=== PATIENT | female | born 1990 | race American Indian/Alaskan Native ===

== ENCOUNTER 2016-03-02 14:19 | Emergency (ER) | payer MEDICAID ==
[2016-03-02 14:59] VITALS: BP 110/62
[2016-03-02] MEDS ORDERED: MOTRIN PO ONE (18:27)
--- NOTE | 2016-03-02 18:32 | Emergency Department Report ---
ED General Adult HPI - General Chief complaint: Dental/Oral Stated complaint: TOOTHACHE/DISCHARGE Time Seen by Provider: 03/02/16 18:24 Source: patient Mode of arrival: Ambulatory Limitations: No Limitations - History of Present Illness Initial comments: 25-year-old female comes in for complaint of cavities and tooth ache. She has not taking any medications for pain. She also complains of vaginal discharge that has a foul smell 2 weeks. She denies abdominal pain no dysuria no fever no chills. LMP 02/28/2016 - Related Data Previous Rx's Medication Instructions Recorded Last Taken Type HYDROcodone/APAP 5-325 [[place] 1 each PO Q6HR PRN #20 tablet 04/25/13 Unknown Rx 5/325 mg] Naproxen [Naprosyn] 500 mg PO BID #30 tablet 04/25/13 Unknown Rx Acetaminophen/Codeine [Tylenol #3] 1 tab PO Q6H PRN #14 tab 08/13/14 Unknown Rx Ibuprofen [Motrin 600 MG tab] 600 mg PO Q8H PRN #30 tablet 03/02/16 Unknown Rx Allergies Allergy/AdvReac Type Severity Reaction Status Date / Time No Known Allergies Allergy Verified 05/15/15 07:55 ED Review of Systems ROS: Stated complaint: TOOTHACHE/DISCHARGE Other details as noted in HPI Constitutional: no symptoms reported ENT: dental pain. denies: ear pain, throat pain Genitourinary: discharge ED Past Medical Hx - Past Medical History Previous Medical History?: No - Surgical History Past Surgical History?: No Additional Surgical History: x2 - Social History Smoking Status: Never Smoker Substance Use Type: None - Medications Home Medications: Home Medications Medication Instructions Recorded Confirmed Last Taken Type HYDROcodone/APAP 5-325 [[place] 1 each PO Q6HR PRN #20 tablet 04/25/13 Unknown Rx 5/325 mg] Naproxen [Naprosyn] 500 mg PO BID #30 tablet 04/25/13 Unknown Rx Acetaminophen/Codeine [Tylenol #3] 1 tab PO Q6H PRN #14 tab 08/13/14 Unknown Rx Ibuprofen [Motrin 600 MG tab] 600 mg PO Q8H PRN #30 tablet 03/02/16 Unknown Rx ED Physical Exam - General Limitations: No Limitations General appearance: alert, in no apparent distress - ENT ENT exam: Present: mucous membranes moist - Expanded ENT Exam Expanded Teeth exam: Present: dental caries (multiple). Absent: fractured tooth #, dental tenderness #, gingival enlargement - Neck Neck exam: Present: full ROM. Absent: tenderness, lymphadenopathy, thyromegaly - External exam: Present: normal external exam Speculum exam: Present: vaginal discharge, cervical discharge. Absent: vaginal bleeding Bi-manual exam: Present: normal bi-manual exam. Absent: cervical motion tendernes, adnexal tenderness, adnexal mass ED Course Vital Signs 03/02/16 14:55 Temperature 98.2 F Pulse Rate 96 H Respiratory 18 Rate Blood Pressure 110/62 O2 Sat by Pulse 100 Oximetry ED Medical Decision Making - Medical Decision Making Patient and evaluated by this provider. Ordered a chlamydia and gonorrhea as well as a wet prep. We order ibuprofen for patient's pain of her mouth. We will treat her for gonorrhea and chlamydia and await the wet prep. Will refer patient to a dentist I do not see any abscesses just multiple caries. Critical care attestation.: If time is entered above; I have spent that time in minutes in the direct care of this critically ill patient, excluding procedure time. ED Disposition Clinical Impression: Tooth caries Disposition: DISCHARGED TO HOME OR SELFCARE Is pt being admited?: No Does the pt Need Aspirin: No Condition: Stable Prescriptions: Ibuprofen [Motrin 600 MG tab] 600 mg PO Q8H PRN #30 tablet PRN Reason: Pain Referrals: PRIMARY CARE, [Primary Care Provider] - 3-5 Days [facility] [Outside] - 3-5 Days [facility] [Outside] - 3-5 Days
[2016-03-02] MEDS ORDERED: XYLOCAINE 1% MPF 5 mL INFILTRATI ONE (19:00)
[2016-03-02] MEDS ORDERED: ROCEPHIN IM ONE (19:00)
[2016-03-02] MEDS ORDERED: ZITHROMAX PO ONE (19:01)
[2016-03-02 19:20] LABS: Bilirubin,Urine NEG (Negative); Blood,Urine NEG (Negative); Ketones,Urine NEG (Negative); Leukocyte Esterase,Urine MOD (Negative); Mucus,Urine 1+ /HPF; Nitrite,Urine NEG (Negative); Protein,Urine <15 mg/dL mg/dL (Negative); Urobilinogen,Urine < 2.0 mg/dL (<2.0)
== END 2016-03-02 19:59 | disposition home or self-care (01) ==
LOC: ED 14:19
DX: K02.9 Dental caries, unspecified (principal); N89.8 Other specified noninflammatory disorders of vagina
CPT/HCPCS: 81001; 81025; 87210; 87591; 96372; 99284; J0696

== ENCOUNTER 2016-06-27 19:03 | Emergency (ER) | payer MEDICAID ==
[2016-06-27 19:41] VITALS: BP 106/64
== END 2016-06-27 21:15 | disposition left against medical advice (07) ==
LOC: ED 19:03
DX: N89.8 Other specified noninflammatory disorders of vagina (principal); Z53.21 Procedure and treatment not carried out due to patient leaving prior to being seen by health care provider

== ENCOUNTER 2016-11-29 09:32 | Emergency (ER) | payer MEDICAID ==
[2016-11-29 10:18] VITALS: BP 115/68
[2016-11-29 10:51] LABS: Bacteria,Urine 4+ /HPF (Negative); Bilirubin,Urine NEG (Negative); Blood,Urine MOD (Negative); Ketones,Urine NEG (Negative); Leukocyte Esterase,Urine LG (Negative); Nitrite,Urine NEG (Negative); Urobilinogen,Urine < 2.0 mg/dL (<2.0)
[2016-11-29 10:52] LABS: WBC,Urine > 182.0 /HPF (0.0-6.0)
[2016-11-29 10:59] LABS: Basophils % (Auto) 0.4 % (0.0-1.8); Eosinophils % (Auto) 1.2 % (0.0-4.3); Hemoglobin 13.6 gm/dl (10.1-14.3); Mean Corpuscular HGB Conc 33 % (30-34); Mean Corpuscular Volume 79 fl (79-97); Platelet Count 223 K/mm3 (140-440); Red Blood Count 5.35 M/mm3 (3.65-5.03); Red Cell Distribution Width 16.8 % (13.2-15.2); White Blood Count 13.7 K/mm3 (4.5-11.0)
[2016-11-29 11:14] LABS: Mean Corpuscular Hemoglobin 26 pg (28-32)
[2016-11-29 11:20] LABS: Anion Gap 15 mmol/L; BUN/Creatinine Ratio 13; Blood Urea Nitrogen 9 mg/dL (7-17); Calcium 9.4 mg/dL (8.4-10.2); Carbon Dioxide 27 mmol/L (22-30); Chloride 102.4 mmol/L (98-107); Glucose 96 mg/dL (65-100); Potassium 3.9 mmol/L (3.6-5.0); Sodium 140 mmol/L (137-145)
--- NOTE | 2016-11-29 11:36 | Emergency Department Report ---
ED Female HPI - General Chief complaint: Urogenital-Female Stated complaint: SPOTTING Time Seen by Provider: 11/29/16 10:56 Source: patient Mode of arrival: Ambulatory Limitations: No Limitations - History of Present Illness MD Complaint: vaginal discharge, dysuria, pelvic pain, possible STD -: Gradual Quality: cramping Consistency: intermittent Worsens with: none Are you Now?: No Associated Symptoms: vaginal discharge, abdominal pain, dysuria. denies: vaginal bleeding, nausea/vomiting, fever/chills, headaches, loss of appetite, hematuria, rash, seizure, shortness of breath, syncope, weakness - Related Data Sexually active: Yes Previous Rx's Medication Instructions Recorded Last Taken Type Doxycycline [Vibramycin CAP] 100 mg PO Q12HR #28 capsule 11/29/16 Unknown Rx Fluconazole [Diflucan TAB] 100 mg PO QDAY #2 tablet 11/29/16 Unknown Rx metroNIDAZOLE [Flagyl] 500 mg PO Q12HR #28 tab 11/29/16 Unknown Rx Allergies Allergy/AdvReac Type Severity Reaction Status Date / Time No Known Allergies Allergy Verified 05/15/15 07:55 ED Review of Systems ROS: Stated complaint: SPOTTING Other details as noted in HPI Comment: Unobtainable due to pts medical conditions Constitutional: no symptoms reported, see HPI. denies: chills, fever Eyes: as per HPI. denies: eye pain ENT: as per HPI. denies: ear pain, throat pain Respiratory: no symptoms reported, see HPI. denies: cough, orthopnea Cardiovascular: as per HPI. denies: chest pain, palpitations, dyspnea on exertion, orthopnea Endocrine: no symptoms reported, see HPI. denies: excessive sweating, flushing , intolerance to cold, intolerance to heat Gastrointestinal: as per HPI. denies: abdominal pain, nausea, vomiting, diarrhea, constipation, hematemesis, melena, hematochezia Genitourinary: as per HPI, urgency, dysuria, frequency, discharge, abnormal menses. denies: hematuria, dyspareunia Musculoskeletal: as per HPI. denies: back pain Skin: as per HPI. denies: rash, lesions Neurological: as per HPI. denies: headache, weakness Psychiatric: as per HPI. denies: anxiety, depression Hematological/Lymphatic: as per HPI. denies: easy bleeding ED Past Medical Hx - Past Medical History Previous Medical History?: Yes Additional medical history: vaginal delivery x 2; std - Surgical History Past Surgical History?: Yes Additional Surgical History: x2 - Social History Smoking Status: Never Smoker Substance Use Type: None - Medications Home Medications: Home Medications Medication Instructions Recorded Confirmed Last Taken Type Doxycycline [Vibramycin CAP] 100 mg PO Q12HR #28 capsule 11/29/16 Unknown Rx Fluconazole [Diflucan TAB] 100 mg PO QDAY #2 tablet 11/29/16 Unknown Rx metroNIDAZOLE [Flagyl] 500 mg PO Q12HR #28 tab 11/29/16 Unknown Rx ED Physical Exam - General Limitations: No Limitations General appearance: alert - Head Head exam: Present: normocephalic - Eye Eye exam: Present: PERRL - ENT ENT exam: Present: mucous membranes moist - Neck Neck exam: Present: normal inspection - Respiratory Respiratory exam: Present: normal lung sounds bilaterally - Cardiovascular Cardiovascular Exam: Present: regular rate - GI/Abdominal GI/Abdominal exam: Present: soft, normal bowel sounds. Absent: distended, tenderness, guarding, rebound, rigid, diminished bowel sounds - Rectal Rectal exam: Present: deferred - External exam: Present: normal external exam Speculum exam: Present: normal speculum exam, erythema, vaginal discharge, cervical discharge. Absent: vaginal bleeding, foreign body, tissue Bi-manual exam: Present: cervical motion tendernes. Absent: normal bi-manual exam, adnexal tenderness, adnexal mass, uterine enlargement, uterine tenderness - Extremities Exam Extremities exam: Present: normal inspection - Back Exam Back exam: Present: normal inspection, full ROM. Absent: tenderness, CVA tenderness (R), CVA tenderness (L), muscle spasm, paraspinal tenderness, vertebral tenderness - Neurological Exam Neurological exam: Present: alert, oriented X3, CN II-XII intact, normal gait, reflexes normal - Psychiatric Psychiatric exam: Present: normal affect, normal mood - Skin Skin exam: Present: warm, dry, intact ED Course Vital Signs 11/29/16 10:13 Temperature 99.4 F Pulse Rate 98 H Respiratory 16 Rate Blood Pressure 115/68 O2 Sat by Pulse 98 Oximetry - Reevaluation(s) Reevaluation #1: 11/29/16 13:09 to er w co vag dc and frequency she has not had sex for a while bc of previous std had sex 2 w ago and now s/s mild fever non toxic appearing walking wo diff no pain w palp of abd no n/v/d see exam ua noted wet prep noted labs noted preg neg given hx and labs will tx empirac. vss on dc pt educated on safe sex ED Medical Decision Making - Lab Data Result diagrams: 11/29/16 10:43 11/29/16 10:43 - Medical Decision Making see notes Critical care attestation.: If time is entered above; I have spent that time in minutes in the direct care of this critically ill patient, excluding procedure time. ED Disposition Clinical Impression: UTI (urinary tract infection), PID (pelvic inflammatory disease), Bacterial vaginosis Disposition: DC- TO HOME OR SELFCARE Is pt being admited?: No Does the pt Need Aspirin: No Condition: Stable Instructions: Bacterial Vaginosis (ED), Sexually Transmitted Diseases (ED), Urinary Tract Infection in Women (ED) Additional Instructions: safe sex meds as ordered follow up ob at completion of this treatment to be sure this has gone away motrin or tylenol for pain your test was negative today partners should be tested Prescriptions: Doxycycline [Vibramycin CAP] 100 mg PO Q12HR #28 capsule Fluconazole [Diflucan TAB] 100 mg PO QDAY #2 tablet metroNIDAZOLE [Flagyl] 500 mg PO Q12HR #28 tab Referrals: PRIMARY CARE, [Primary Care Provider] - 3-5 Days Forms: STI Treatment and Prevention Time of Disposition: 12:46
[2016-11-29] MEDS ORDERED: XYLOCAINE 1% MPF 5 mL INFILTRATI ONE (12:42)
[2016-11-29] MEDS ORDERED: ROCEPHIN IM ONE (12:42)
== END 2016-11-29 13:05 | disposition home or self-care (01) ==
LOC: ED 09:32
DX: N39.0 Urinary tract infection, site not specified (principal); N73.9 Female pelvic inflammatory disease, unspecified; N76.0 Acute vaginitis
CPT/HCPCS: 36415; 80048; 81001; 81025; 85025; 87076; 87086; 87210; 87591; 96372; 99284; J0696

== ENCOUNTER 2017-11-18 11:08 | Emergency (ER) | payer MEDICAID ==
[2017-11-18 11:26] VITALS: BP 121/71
[2017-11-18 12:05] LABS: Bilirubin,Urine NEG (Negative); Blood,Urine NEG (Negative); Color,Urine Yellow (Yellow); Mucus,Urine FEW /HPF; Protein,Urine <15 mg/dL mg/dL (Negative)
[2017-11-18 12:08] LABS: HCG Qualitative,Urine Negative (Negative)
[2017-11-18] MEDS ORDERED: XYLOCAINE 1% MPF 5 mL INFILTRATI ONE (12:17)
[2017-11-18] MEDS ORDERED: ZITHROMAX PO ONE (12:17)
[2017-11-18] MEDS ORDERED: ROCEPHIN IM ONE (12:17)
--- NOTE | 2017-11-18 12:22 | Emergency Department Report ---
ED Female HPI - General Chief complaint: Urogenital-Female Stated complaint: DISCHARGE Time Seen by Provider: 11/18/17 11:39 Source: patient Mode of arrival: Ambulatory Limitations: No Limitations - History of Present Illness Initial comments: This is a 27-year-old female nontoxic, well nourished in appearance, no acute signs of distress presents to the ED with c/o of vaginal discharge. Patient denies any vaginal pain or swelling. Patient denies any vaginal ulcers or lesions. Patient denies any nausea, vomiting, chest pain, shortness of breathe , fever, chills, headache, back pain, numbness, tingling, stiff neck. Patient denies any urinary symptoms. Patient denies any allergies or PMH. MD Complaint: vaginal discharge, possible STD -: week(s) (1) Radiation: non-radiating Severity scale (0 -10): 0 Consistency: constant Improves with: none Worsens with: none Are you Now?: No Associated Symptoms: vaginal discharge. denies: vaginal bleeding, abdominal pain, nausea/vomiting, fever/chills, headaches, loss of appetite, dysuria, hematuria, rash, seizure, shortness of breath, syncope, weakness - Related Data Sexually active: Yes Previous Rx's Medication Instructions Recorded Last Taken Type Doxycycline [Vibramycin CAP] 100 mg PO Q12HR #28 capsule 11/29/16 Unknown Rx Fluconazole [Diflucan TAB] 100 mg PO QDAY #2 tablet 11/29/16 Unknown Rx metroNIDAZOLE [Flagyl] 500 mg PO Q12HR #28 tab 11/29/16 Unknown Rx metroNIDAZOLE [Flagyl] 500 mg PO Q12HR #14 tab 11/18/17 Unknown Rx Allergies Allergy/AdvReac Type Severity Reaction Status Date / Time No Known Allergies Allergy Verified 05/15/15 07:55 ED Review of Systems ROS: Stated complaint: DISCHARGE Other details as noted in HPI Constitutional: denies: chills, fever Eyes: denies: eye pain, eye discharge, vision change ENT: denies: ear pain, throat pain Respiratory: denies: cough, shortness of breath, wheezing Cardiovascular: denies: chest pain, palpitations Endocrine: no symptoms reported Gastrointestinal: denies: abdominal pain, nausea, diarrhea Genitourinary: discharge. denies: urgency, dysuria Musculoskeletal: denies: back pain, joint swelling, arthralgia Skin: denies: rash, lesions Neurological: denies: headache, weakness, paresthesias Psychiatric: denies: anxiety, depression Hematological/Lymphatic: denies: easy bleeding, easy bruising ED Past Medical Hx - Past Medical History Previous Medical History?: Yes Hx Hypertension: Yes (PIH) Additional medical history: vaginal delivery x 2; std - Surgical History Past Surgical History?: Yes Additional Surgical History: x2 - Social History Smoking Status: Never Smoker Substance Use Type: None - Medications Home Medications: Home Medications Medication Instructions Recorded Confirmed Last Taken Type Doxycycline [Vibramycin CAP] 100 mg PO Q12HR #28 capsule 11/29/16 Unknown Rx Fluconazole [Diflucan TAB] 100 mg PO QDAY #2 tablet 11/29/16 Unknown Rx metroNIDAZOLE [Flagyl] 500 mg PO Q12HR #28 tab 11/29/16 Unknown Rx metroNIDAZOLE [Flagyl] 500 mg PO Q12HR #14 tab 11/18/17 Unknown Rx ED Physical Exam - General Limitations: No Limitations General appearance: alert, in no apparent distress - Head Head exam: Present: atraumatic, normocephalic - Eye Eye exam: Present: normal appearance - ENT ENT exam: Present: mucous membranes moist - Neck Neck exam: Present: normal inspection - Respiratory Respiratory exam: Present: normal lung sounds bilaterally. Absent: respiratory distress, wheezes, rales, rhonchi, stridor - Cardiovascular Cardiovascular Exam: Present: regular rate, normal rhythm, normal heart sounds. Absent: bradycardia, tachycardia, irregular rhythm, systolic murmur, diastolic murmur, rubs, gallop - GI/Abdominal GI/Abdominal exam: Present: soft, normal bowel sounds. Absent: distended, tenderness - Extremities Exam Extremities exam: Present: normal inspection, full ROM, normal capillary refill - Back Exam Back exam: Present: normal inspection - Neurological Exam Neurological exam: Present: alert, oriented X3 - Psychiatric Psychiatric exam: Present: normal affect, normal mood - Skin Skin exam: Present: warm, dry, intact, normal color. Absent: rash ED Course Vital Signs 11/18/17 11:23 Temperature 99.5 F Pulse Rate 86 Respiratory 18 Rate Blood Pressure 121/71 O2 Sat by Pulse 97 Oximetry - Reevaluation(s) Reevaluation #1: 11/18/17 12:20 Patient is speaking in full sentences with no signs of distress noted. ED Medical Decision Making - Medical Decision Making This is a 27-year-old female that presents with possible STD and BV. Patient is stable was examined by me. Patient swabbed self as she stated to rather swab herself then getting a pelvic exam. There is no abdominal tenderness. No pelvic pain. UA obtained. Wet prep obtained. Gonorrhea chlamydia swab pending. Patient was instructed to return in 2 days for GC results. Patient wanted empirical treatment so patient received 250 mg Rocephin and 1 g of azithromycin by mouth. Patient was instructed to Follow-up with a primary care doctor in 3-5 days or if symptoms worsen and continue return to emergency room as soon as possible. At time of discharge, the patient does not seem toxic or ill in appearance. No acute signs of distress noted. Patient agrees to discharge treatment plan of care. No further questions noted by the patient. Critical care attestation.: If time is entered above; I have spent that time in minutes in the direct care of this critically ill patient, excluding procedure time. ED Disposition Clinical Impression: Possible exposure to STD, BV (bacterial vaginosis) Disposition: DC-01 TO HOME OR SELFCARE Is pt being admited?: No Does the pt Need Aspirin: No Condition: Stable Instructions: Safe Sex (ED), Bacterial Vaginosis (ED), Metronidazole (By mouth) Additional Instructions: Follow-up with a primary care doctor in 3-5 days or if symptoms worsen and continue return to emergency room as soon as possible. Return in 2-3 days for gonorrhea and chlamydia results. Prescriptions: metroNIDAZOLE [Flagyl] 500 mg PO Q12HR #14 tab Referrals: LEOPOLDO NAJERA MD [Primary Care Provider] - 3-5 Days JUAN CARLOS GAONA MD [Staff Physician] - 3-5 Days [facility] [Outside] - 3-5 Days [facility] [Outside] - 3-5 Days Forms: Work/School Release Form(ED)
[2017-11-18] MEDS ORDERED: NACL BACTERIOSTATIC INFILTRATI ONE (12:37)
== END 2017-11-18 12:59 | disposition home or self-care (01) ==
LOC: ED 11:08
DX: N76.0 Acute vaginitis (principal); I10 Essential (primary) hypertension
CPT/HCPCS: 81001; 81025; 87210; 87591; 96372; 99283; J0696

== ENCOUNTER 2019-01-26 09:22 | Emergency (ER) | payer MEDICAID, OTHER ==
[2019-01-26 09:32] VITALS: BP 106/63
--- NOTE | 2019-01-26 11:42 | Emergency Department Report ---
Chief Complaint: Dental/Oral Stated Complaint: POSS UTI/TOOTHACHE Time Seen by Provider: 01/26/19 10:41 - HPI History of Present Illness: This is a 28-year-old female who presents to ED complaining of toothache for the past 2 weeks. Patient stated that extensive pain is causing discomfort with eating. Patient stated she started noticing some swelling to the right lower 2. Patient is also is stating that she wants to be tested for as well as malodorous urine patient denies fevers/chills/nausea vomiting/abdominal pain since vaginal discharge or any other symptoms. - ROS Review of Systems: Studies in HPI - Exam Vital Signs: Vital Signs 01/26/19 09:31 Temperature 98.7 F Pulse Rate 74 Respiratory 18 Rate Blood Pressure 106/63 O2 Sat by Pulse 100 Oximetry Physical Exam: GENERAL: Alert and oriented x3, no apparent distress, Normal Gait, atraumatic. HEAD: Head is normocephalic and a-traumatic. MOUTH:Mouth is well hydrated and without lesions. Tonsils nonerythematous or swollen, Uvula midline, Tongue not elevated. Mucous membranes are moist. Posterior pharynx clear, no exudate or lesions. Patent airways. SKIN: Warm and dry, No lesions, No ulceration or induration present. MSE screening note: Focused history and physical exam performed. Due to findings the following was ordered: ED Medical Decision Making - Medical Decision Making 38-year-old female who presented with dental pain. Discussed with patient needs to follow-up with [facility] for test 2 and referrals given for dental referral as well. Vital signs are normal ED Disposition for MSE Clinical Impression: Pain due to dental caries Disposition: DC-01 TO HOME OR SELFCARE Is pt being admited?: No Does the pt Need Aspirin: No Condition: Stable Instructions: Dental Caries (ED), Toothache (ED) Additional Instructions: Make sure to follow up with the primary care physician as discussed. Take all your medications as you've been prescribed. If you have any worsening symptoms or develop new symptoms please return to ED immediately. Prescriptions: Amoxicillin [Amoxicillin TAB] 875 mg PO BID #20 tablet Referrals: [facility] [Outside] - 3-[address] [facility] [Outside] - 3-5 Days [facility] [Outside] - 3-5 Days [facility] [Outside] - 3-5 Days Forms: Work/School Release Form(ED) Time of Disposition: 11:52
== END 2019-01-26 11:55 | disposition home or self-care (01) ==
LOC: ED 09:22
DX: K02.9 Dental caries, unspecified (principal)
CPT/HCPCS: 99281

== ENCOUNTER 2019-04-14 11:23 | Emergency (ER) | payer OTHER ==
--- NOTE | 2019-04-14 12:27 | Emergency Department Report ---
ED Female HPI - General Chief complaint: Urogenital-Female Stated complaint: DISCHARGE ODOR/ITCHY Time Seen by Provider: 04/14/19 11:43 Source: patient Mode of arrival: Ambulatory Limitations: No Limitations - History of Present Illness MD Complaint: vaginal bleeding, vaginal discharge -: Gradual Location: suprapubic Radiation: non-radiating Severity: mild Consistency: constant Improves with: none Worsens with: none Are you Now?: No Associated Symptoms: vaginal discharge - Related Data Previous Rx's Medication Instructions Recorded Last Taken Type DOXYCYCLINE Hyclate [Vibramycin 100 mg PO Q12HR #28 capsule 11/29/16 Unknown Rx CAP] Fluconazole [Diflucan TAB] 100 mg PO QDAY #2 tablet 11/29/16 Unknown Rx metroNIDAZOLE [Flagyl] 500 mg PO Q12HR #28 tab 11/29/16 Unknown Rx metroNIDAZOLE [Flagyl] 500 mg PO Q12HR #14 tab 11/18/17 Unknown Rx Amoxicillin [Trimox CAP] 500 mg PO Q8H #20 capsule 11/25/17 Unknown Rx Naproxen [Naprosyn] 500 mg PO TID #12 tablet 11/25/17 Unknown Rx traMADoL [Ultram 50 MG tab] 50 mg PO Q6HR PRN #8 tablet 11/25/17 Unknown Rx Amoxicillin [Amoxicillin TAB] 875 mg PO BID #20 tablet 01/26/19 Unknown Rx metroNIDAZOLE [Flagyl] 500 mg PO Q12HR #20 tab 04/14/19 Unknown Rx Allergies Allergy/AdvReac Type Severity Reaction Status Date / Time No Known Allergies Allergy Verified 04/14/19 11:26 ED Review of Systems ROS: Stated complaint: DISCHARGE ODOR/ITCHY Other details as noted in HPI Comment: All other systems reviewed and negative ED Past Medical Hx - Past Medical History Hx Hypertension: No (PIH) Additional medical history: vaginal delivery x 2; std - Surgical History Additional Surgical History: x2 - Social History Smoking Status: Never Smoker Substance Use Type: None - Medications Home Medications: Home Medications Medication Instructions Recorded Confirmed Last Taken Type DOXYCYCLINE Hyclate [Vibramycin 100 mg PO Q12HR #28 capsule 11/29/16 Unknown Rx CAP] Fluconazole [Diflucan TAB] 100 mg PO QDAY #2 tablet 11/29/16 Unknown Rx metroNIDAZOLE [Flagyl] 500 mg PO Q12HR #28 tab 10/15/17 Unknown Rx metroNIDAZOLE [Flagyl] 500 mg PO Q12HR #14 tab 11/18/17 Unknown Rx Amoxicillin [Trimox CAP] 500 mg PO Q8H #20 capsule 11/25/17 Unknown Rx Naproxen [Naprosyn] 500 mg PO TID #12 tablet 11/25/17 Unknown Rx traMADoL [Ultram 50 MG tab] 50 mg PO Q6HR PRN #8 tablet 11/25/17 Unknown Rx Amoxicillin [Amoxicillin TAB] 875 mg PO BID #20 tablet 01/26/19 Unknown Rx metroNIDAZOLE [Flagyl] 500 mg PO Q12HR #20 tab 04/14/19 Unknown Rx ED Physical Exam - General Limitations: No Limitations General appearance: alert, in no apparent distress - Head Head exam: Present: atraumatic, normocephalic - Eye Eye exam: Present: normal appearance, PERRL, EOMI Pupils: Present: normal accommodation - ENT ENT exam: Present: normal exam, mucous membranes moist, TM's normal bilaterally - Neck Neck exam: Present: normal inspection - Respiratory Respiratory exam: Present: normal lung sounds bilaterally. Absent: respiratory distress, wheezes, rales, rhonchi, chest wall tenderness, accessory muscle use - Cardiovascular Cardiovascular Exam: Present: regular rate, normal rhythm. Absent: systolic murmur, diastolic murmur, rubs, gallop - GI/Abdominal GI/Abdominal exam: Present: soft, normal bowel sounds - Extremities Exam Extremities exam: Present: normal inspection - Back Exam Back exam: Present: normal inspection - Neurological Exam Neurological exam: Present: alert, oriented X3 - Psychiatric Psychiatric exam: Present: normal affect, normal mood - Skin Skin exam: Present: warm, dry, intact, normal color. Absent: rash Critical care attestation.: If time is entered above; I have spent that time in minutes in the direct care of this critically ill patient, excluding procedure time. ED Disposition Clinical Impression: Trichomonal vaginitis Disposition: DC[facility] Is pt being admited?: No Does the pt Need Aspirin: No Condition: Stable Instructions: Trichomoniasis (ED), Safe Sex (ED), Sexually Transmitted Diseases (ED), Chlamydia Infection (ED) Additional Instructions: Please be sure to follow-up with her department for further STD evaluation. You have been covered for chlamydia and gonorrhea STD today Prescriptions: metroNIDAZOLE [Flagyl] 500 mg PO Q12HR #20 tab Referrals: JUAN TEIXEIRA MD [Primary Care Provider] - 3-5 Days [facility] [Outside] - 3-5 Days
[2019-04-14] MEDS ORDERED: AZITHROMYCIN 250 MG TAB PO STA (13:44)
[2019-04-14] MEDS ORDERED: LIDOCAINE-MPF (1%) 10 MG/1 ML VIAL 5 ML INFILTRATI ONE (13:44)
== END 2019-04-14 14:08 | disposition short-term general hospital (02) ==
LOC: ED 11:23
DX: A59.01 Trichomonal vulvovaginitis (principal)
CPT/HCPCS: 87210; 87591; 96372; 99282; J0696

== ENCOUNTER 2019-04-27 10:26 | Emergency (ER) | payer OTHER | END 2019-04-27 10:55 | disposition left against medical advice (07) | LOC: ED 10:26 | DX: R19.7 Diarrhea, unspecified (principal); Z53.21 Procedure and treatment not carried out due to patient leaving prior to being seen by health care provider ==

== ENCOUNTER 2019-10-31 06:34 | Outpatient (CLI) | payer OTHER ==
[2019-10-31 07:27] VITALS: BP 108/63
[2019-10-31] MEDS ORDERED: LACTATED RINGERS 1,000 ML IV ONE (08:00)
--- NOTE | 2019-10-31 08:44 | Ultrasound Report ---
ULTRASOUND OBSTETRIC LIMITED ULTRASOUND BIOPHYSICAL PROFILE INDICATION / CLINICAL INFORMATION: bpp/norm. Clinical Gestational Age (GA): 33 weeks 4.days COMPARISON: None available. FINDINGS: BREATHING MOVEMENT = 2 GROSS BODY MOVEMENT = 2 TONE = 2 QUALITATIVE AMNIOTIC FLUID VOLUME = 2 TOTAL BIOPHYSICAL SCORE = 8/8 HEART RATE (beats per minute): 155 AMNIOTIC FLUID INDEX (cm) = 14.9 (normal = 7-24 cm) PRESENTATION: Cephalic. ADDITIONAL FINDINGS: None. IMPRESSION: 1. Biophysical Score = 8/8 Signer Name: Clint Lamas MD Signed: 10/31/2019 8:39 AM Workstation Name: [id number]
[2019-10-31 09:50] LABS: Bilirubin,Urine NEG (Negative); Blood,Urine NEG (Negative); Color,Urine Straw (Yellow); Protein,Urine <15 mg/dL mg/dL (Negative); Urobilinogen,Urine < 2.0 mg/dL (<2.0); WBC,Urine < 1.0 /HPF (0.0-6.0)
[2019-10-31] MEDS ORDERED: TERBUTALINE 1 MG/1 ML INJ SUB-Q SCH (10:00)
[2019-10-31] MEDS ORDERED: NIFEdipine*For Tocolysis only* 10 MG CAPSULE PO SCH (10:00)
[2019-10-31] MEDS ORDERED: TERBUTALINE 1 MG/1 ML INJ ONE (10:05)
[2019-10-31] MEDS ORDERED: BUTORPHANOL 2 MG/1 ML INJ IV ONE (10:15)
[2019-10-31] MEDS ORDERED: LACTATED RINGERS 1,000 ML IV SCH (11:00)
== END 2019-10-31 12:10 | disposition home or self-care (01) ==
LOC: APU 06:34 → TRG 06:34 → APU 06:47 → TRG 12:10
PROVIDERS: ATTEND Obstetrics & Gynecology
DX: O42.913 Preterm premature rupture of membranes, unspecified as to length of time between rupture and onset of labor, third trimester (principal); O47.03 False labor before 37 completed weeks of gestation, third trimester; O13.3 Gestational [pregnancy-induced] hypertension without significant proteinuria, third trimester; Z3A.33 33 weeks gestation of pregnancy
CPT/HCPCS: 59025; 76815; 76819; 81001; 96360; 96361; 96372; J3105; J7120; J0595

== ENCOUNTER 2019-11-29 02:46 | Outpatient (CLI) | payer OTHER ==
[2019-11-29 02:52] VITALS: BP 125/81
== END 2019-11-29 03:29 | disposition home or self-care (01) ==
LOC: TRG 02:46 → APU 02:47 → TRG 03:29
PROVIDERS: ATTEND Obstetrics & Gynecology
DX: O26.893 Other specified pregnancy related conditions, third trimester (principal); R10.9 Unspecified abdominal pain; M54.5 Low back pain; Z3A.39 39 weeks gestation of pregnancy
CPT/HCPCS: 59025

== ENCOUNTER 2019-12-08 11:28 | Inpatient (IN) | payer OTHER ==
[2019-12-08] MEDS ORDERED: LACTATED RINGERS 1,000 ML IV ONE (13:15)
[2019-12-08 13:46] LABS: Hematocrit 34.8 % (30.3-42.9); Hemoglobin 11.5 gm/dl (10.1-14.3); Mean Corpuscular HGB Conc 33 % (30-34); Mean Corpuscular Volume 77 fl (79-97); Platelet Count 233 K/mm3 (140-440); Red Blood Count 4.55 M/mm3 (3.65-5.03); Red Cell Distribution Width 17.3 % (13.2-15.2)
[2019-12-08] MEDS ORDERED: METOCLOPRAMIDE 10 MG/2 ML INJ IV SCH (13:51)
[2019-12-08] MEDS ORDERED: BICITRA ORAL LIQD 30ML PO SCH (13:51)
[2019-12-08] MEDS ORDERED: FAMOTIDINE 20 MG/2 ML INJ IV SCH (13:51)
--- NOTE | 2019-12-08 13:56 | History and Physical Report ---
History of Present Illness Date of examination: 12/08/19 Chief complaint: prior c/s x 2 for repeat, contractions, GHTN History of present illness: 29-year-old -2-0-5 at 39 weeks complicated by history of beta thalassemia minor, history of delivery x2, history of placental cyst, anemia, daughter with congenital defect (heart murmur), GBS positive, history of prior x2, presenting from clinic with with contractions and elevated blood pressure to 135/93 undergoing evaluation for evidence of preeclampsia and rule out labor. Also sent from clinic for evaluation of possible DVT. Denies PIH symptoms. Denies vaginal bleeding or leakage of fluid. Normal movement Past History Past Medical History: asthma, other (Beta thalassemia minor) Past Surgical History: section (x2) Family/Genetic History: congenital heart defect (Daughter) Social history: no significant social history - Obstetrical History : 5 Para: 2 Hx # Term Pregnancies: 2 Number of Pregnancies: 2 Number of Living Children: 5 Medications and Allergies Allergies Allergy/AdvReac Type Severity Reaction Status Date / Time No Known Allergies Allergy Verified 04/14/19 11:26 Active Meds: Active Medications Lactated Ringer's (Lactated Ringers) 1,000 mls @ 999 mls/hr IV BOLUS ONE Stop: 12/08/19 14:15 Lactated Ringer's (Lactated Ringers) 1,000 mls @ 125 mls/hr IV DIRECT TRISH Review of Systems All systems: negative (expect HPI) - Vital Signs Vital signs: Vital Signs Pulse BP 94 H 117/75 12/08/19 11:57 12/08/19 11:57 Temp Pulse Resp BP Pulse Ox 98.9 F 86 12 125/89 99 12/08/19 12:03 12/08/19 13:44 12/08/19 12:03 12/08/19 13:44 12/08/19 13:42 - Physical Exam Abdomen: Positive: normal appearance, normal bowel sounds, other (gravid) - Obstetrical Uterine Contraction Monitor Mode: External Cervical Dilatation: 3 Cervical Effacement Percentage: 50 station: -2 Uterine Contraction Frequency (min): 5 Uterine Contraction Pattern: Irregular Results Result Diagrams: 12/08/19 13:09 Abnormal lab results 12/08/19 Range/Units 13:09 MCV 77 L (79-97) fl MCH 25 L (28-32) pg RDW 17.3 H (13.2-15.2) % All other labs normal. Assessment and Plan - Patient Problems (1) H/O: Current Visit: Yes Status: Acute Plan to address problem: To OR for repeat and bilateral tubal ligation --Questions elicited and answered --Consented in the chart (2) Elevated blood pressure affecting in third trimester, antepartum Current Visit: Yes Status: Acute Plan to address problem: --Obtaining PIH labs --Monitor blood pressures and s/sx of severe preeclampsia (3) Leg pain Current Visit: Yes Status: Acute Plan to address problem: Bilateral Dopplers ordered
[2019-12-08] MEDS ORDERED: ceFAZolin/Water 2 GM/20 ML 2 GM/20 ML SYRINGE IV NR (14:00)
[2019-12-08] MEDS ORDERED: LACTATED RINGERS 1,000 ML IV SCH (14:00)
[2019-12-08] MEDS ORDERED: OXYTOCIN DRIP 30 UNITS/500 ML BAG IV SCH ×2 (14:00→20:00)
[2019-12-08 14:10] LABS: Alanine Aminotransferase 18 units/L (7-56); Uric Acid 4.7 mg/dL (3.5-7.6)
--- NOTE | 2019-12-08 14:25 | Vascular Lab Report ---
DUPLEX DOPPLER LOWER EXTREMITY VEINS, BILATERAL INDICATION / CLINICAL INFORMATION: Bilateral leg pain and swelling for one month. TECHNIQUE: Duplex doppler imaging was performed through the veins of both lower extremities using venous ronald caty and other maneuvers. COMPARISON: None available. FINDINGS: RIGHT COMMON FEMORAL VEIN: Negative. RIGHT FEMORAL VEIN: Negative. RIGHT POPLITEAL VEIN: Negative. RIGHT CALF VEINS: Negative. LEFT COMMON FEMORAL VEIN: Negative. LEFT FEMORAL VEIN: Negative. LEFT POPLITEAL VEIN: Negative. LEFT CALF VEINS: Negative. ADDITIONAL FINDINGS: None. IMPRESSION: 1. No sonographic evidence for DVT in either lower extremity. Signer Name: Eliel Barajas MD Signed: 12/08/2019 2:21 PM Workstation Name: [id number]
[2019-12-08 14:34] LABS: Bacteria,Urine 1+ /HPF (Negative); Bilirubin,Urine NEG (Negative); Blood,Urine NEG (Negative); Color,Urine Yellow (Yellow); Mucus,Urine FEW /HPF
[2019-12-08] MEDS: LACTATED RINGERS 1,000 ML IV SCH ×2 (15:04→15:05)
--- NOTE | 2019-12-08 16:17 | Anesthesia Consultation ---
Anesthesia Consult and Med Hx Date of service: 12/08/19 - Airway Anesthetic Teeth Evaluation: Good ROM Head & Neck: Adequate Mental/Hyoid Distance: Adequate Mallampati Class: Class II Intubation Access Assessment: Probably Good - Pulmonary Exam CTA: Yes - Cardiac Exam Cardiac Exam: RRR - Pre-Operative Health Status ASA Pre-Surgery Classification: ASA2 Proposed Anesthetic Plan: Spinal - Pulmonary Hx Asthma: No COPD: No Hx Pneumonia: No - Cardiovascular System Hx Hypertension: Yes - Central Nervous System Hx Seizures: No Hx Psychiatric Problems: No - Endocrine Hx Renal Disease: No Hx End Stage Renal Disease: No Hx Hypothyroidism: No Hx Hyperthyroidism: No - Hematic Hx Anemia: No Hx Sickle Cell Disease: No - Other Systems Hx Alcohol Use: No
--- NOTE | 2019-12-08 16:18 | Anesthesia Day of Surgery ---
Anesthesia Day of Surgery - Day of Surgery Patient Examined: Yes Patient H&P Reviewed: Yes Patient is NPO: Yes
[2019-12-08] MEDS ORDERED: BUPIVACAINE/PF (0.5%) 5 MG/1 ML 30 ML VIAL INFILTRATI ONE (16:23)
[2019-12-08] MEDS ORDERED: ONDANSETRON 4 MG/2 ML INJ ONE (16:23)
[2019-12-08] MEDS ORDERED: dexAMETHasone 20 MG/5 ML VIAL ONE (16:23)
[2019-12-08] MEDS ORDERED: KETOROLAC 30 MG/1 ML INJ ONE (16:23)
[2019-12-08] MEDS ORDERED: ceFAZolin/STERILE WATER 2 GM/20 ML SYRINGE IV ONE (17:02)
[2019-12-08] MEDS ORDERED: SODIUM CHLORIDE 0.9% IRR 1,500 ML BOTTLE IR ONE (17:35)
[2019-12-08] MEDS ORDERED: WATER FOR IRRIG STERILE 1,500 ML BOTTLE IR ONE (17:35)
[2019-12-08] MEDS ORDERED: ONDANSETRON 4 MG/2 ML INJ IV PRN (19:00)
[2019-12-08] MEDS ORDERED: SIMETHICONE 80 MG CHEW TAB PO PRN (19:00)
[2019-12-08] MEDS ORDERED: SENNOSIDES 8.6 MG TAB PO PRN (19:00)
[2019-12-08] MEDS ORDERED: WITCH HAZEL/ GLYCERIN PAD TP PRN (19:00)
[2019-12-08] MEDS ORDERED: HYDROCORTISONE 25 MG RECTAL SUPP PR PRN (19:00)
[2019-12-08] MEDS ORDERED: NALOXONE 0.4 MG/1 ML INJ IV PRN (19:00)
[2019-12-08] MEDS ORDERED: oxyCODONE /ACETAMINOPHEN 5-325MG TAB PO PRN (19:00)
[2019-12-08] MEDS ORDERED: MORPHINE 4 MG/1 ML INJ IV PRN (19:00)
[2019-12-08] MEDS ORDERED: PROMETHAZINE 25 MG RECT SUPP PR PRN (19:00)
[2019-12-08] MEDS ORDERED: MAGNESIUM HYDROXIDE (MOM) ORAL LIQD UDC PO PRN (19:00)
[2019-12-08] MEDS ORDERED: LANOLIN/ZINC/DIMETHICONE (LANSINOH) 7 GM TP PRN (19:00)
--- NOTE | 2019-12-08 19:03 | Procedure Note ---
OB Delivery Note - Delivery Date of Delivery: 12/08/19 Surgeon: JONAS DOE JR Estimated blood loss: other (750cc) - Section Preop diagnosis: repeat Postop diagnosis: same section procedure: section, repeat low transverse, bilateral tubal ligation Disposition: PACU Complications: none Narrative: Indication: 29-year-old -2-0-5 at 39 weeks presenting with contractions and elevated blood pressures at home running for repeat and tubal ligation Findings: Normal uterus, tubes and ovaries. Clear fluid. No nuchal cord. Delivery of male at 1745 Weight 2995 g Height 18.5 inches Apgars 8/9 EBL 750 cc Intraoperative IV fluids 1200 cc Urine output 300 cc Procedure: Patient was taken to the operating room prepped and draped in the usual sterile fashion. Pfannenstiel skin incision was made and carried down to the underlying fascia. Fascia was incised and the incision was distended bilaterally. Rectus fascia was dissected off the rectus muscle superiorly and inferiorly. Peritoneum was identified and entered. Peritoneal incision extended superiorly and inferiorly. The bladder was visualized. The bladder blade was placed. Uterine hysterotomy incision was made and extended bilaterally. The baby was delivered in the typical vertex fashion. Baby was bulb suction at delivery. The cord was cut and clamped and handed off to the team. The placenta was delivered spontaneously. The uterus was exteriorized and cleared of all clots and debris. Uterine incision was closed with a 0 Vicryl in a running locked fashion. Good hemostasis was noted. The urine was noted to be clear. Next bilateral tubal ligation was completed starting with the left tube. A Joe clamp was used to elevate the tube and 2-0 chromic suture was used to suture the tube proximally followed by distally. The tubal segment was transected with Metzenbaum scissors first distally then proximally. Attention was directed to the right tube which was noted to be densely adhered along with the ovary and broad ligament. The most proximal end of the tubal segment was identified and the tip tubal segment was was obtained in a similar fashion as the contralateral side. At this time significant bleeding was noted coming from the proximal cornual aspect of the uterus adjacent to the transected tubal segment. Dr. Alison Wilson was called in for assistance. With 3 separate passes, a 0 Vicryl on a CT1 suture obtained hemostasis. The uterus was observed for 2 minutes prior to reinserting back to the abdomen without persistent bleeding noted. Surgicel was used in order to provide additional hemostasis. Uterus, tubes, and ovaries were returned to the abdominal cavity. Bilateral gutters were cleared and the abdomen and pelvis were irrigated. Good hemostasis noted. Attention was directed towards the rectus fascia which was reapproximated with 0 PDS in a running fashion. Skin was closed with a 4-0 Vicryl in a subcuticular fashion. The procedure was completed and the patient tolerated the procedure well. All instruments and lap counts were correct x2. - Infant A at 1 minute: 8 at 5 minutes: 9 Infant Gender: Male
[2019-12-08] MEDS ORDERED: PHENYLEPHRINE/NS 1,000 MCG/10 ML SYRINGE (OR USE) IV ONE (19:32)
--- NOTE | 2019-12-08 19:41 | Post Anesthesia Evaluation ---
- Post Anesthesia Evaluation Patient Participated: Yes Airway Patent: Yes Stable Respiratory Function: Yes Nausea/Vomiting: No Temp > 96.8F: Yes Pain Manageable: Yes Adequeate Hydration: Yes Anesthesia Complications: No Block Receding Appropriately: Yes
--- NOTE | 2019-12-08 19:42 | Progress Note ---
Regional Anesthesia Block - Regional Anesthesia Block Start Time: 19:15 Stop Time: 19:20 Performed By:: ASHKAN OTT Procedure: U/S guided bilateral tap block performed for post-operative pain requested by Dr. Bacon. H&P & labs reviewed. Procedure explained, questions answered, consent obtained. Patient in the supine position with ekg, blood pressure cuff and pulse ox on and working in PACU. Timeout performed immediately before start of procedure. Probe placed in the mid-axillary line and the external oblique, internal oblique, and transverse abdominus muscles identified. Skin was cleansed with 0.5% Chlorahexadine and allowed to dry. A 4" 20 G Ray echogenic needle was advanced in plane until the tip was in the fascial plane between the internal oblique and the transverse abdominus. After negative aspiration 35 ml/side of [30 ml 0.5% Bupivacaine], [50 mcg dexmedetomidine], [8 mg dexamethasone], and [40 ml sterile saline] was injected in 5 ml increments with negative aspiration in between. Patient tolerated procedure well. Richard RODRIGUEZ
[2019-12-08] MEDS ORDERED: HYDROmorphone 1 MG/1 ML INJ IV PRN (21:53)
[2019-12-08] MEDS: KETOROLAC 30 MG/1 ML INJ IV SCH (22:14)
[2019-12-09] MEDS: KETOROLAC 30 MG/1 ML INJ IV SCH (05:25)
[2019-12-09 06:27] LABS: Hematocrit 32.2 % (30.3-42.9); Hemoglobin 10.2 gm/dl (10.1-14.3)
[2019-12-09] MEDS: oxyCODONE /ACETAMINOPHEN 5-325MG TAB PO PRN ×3 (07:43→20:21)
[2019-12-09] MEDS: IBUPROFEN 800 MG TAB PO PRN ×2 (10:19→18:00)
--- NOTE | 2019-12-09 11:01 | Progress Note ---
Assessment and Plan A: /postop day 1 S/P repeat LTCS with BTL. Anemia. P: Encouraged patient to ambulate. Continue current management. Supplement with oral iron beginning tomorrow morning. Subjective - Subjective Date of service: 12/09/19 Principal diagnosis: /postop day 1 S/P repeat LTCS with BTL Patient reports: appetite normal, pain well controlled, flatus, ambulating normally, no dizzy ambulation, no nauseated : doing well Objective - Vital Signs Latest vital signs: Vital Signs Temp Pulse Resp BP BP Pulse Ox 12/09/19 08:40 97.7 F 71 20 134/85 12/09/19 05:06 97.9 F 68 20 127/88 97 12/09/19 00:47 97.8 F 67 18 134/89 96 12/08/19 21:00 98.1 F 68 20 139/96 98 12/08/19 20:30 71 21 123/89 100 12/08/19 20:20 77 12 131/91 100 12/08/19 20:05 80 17 141/96 100 12/08/19 19:50 70 14 133/89 100 12/08/19 19:35 64 15 134/94 100 12/08/19 19:20 80 16 107/60 100 12/08/19 19:15 68 16 99/45 99 12/08/19 19:10 77 15 89/34 99 12/08/19 19:05 97.7 F 89 14 94/48 99 12/08/19 13:44 86 125/89 12/08/19 13:42 90 99 12/08/19 13:37 86 99 12/08/19 13:32 89 98 12/08/19 13:29 86 128/90 12/08/19 13:27 81 98 12/08/19 13:22 77 99 12/08/19 13:17 84 98 12/08/19 13:15 83 132/92 12/08/19 13:12 81 99 12/08/19 13:07 86 98 12/08/19 13:02 94 H 98 12/08/19 13:00 84 130/83 12/08/19 12:57 87 98 12/08/19 12:52 92 H 98 12/08/19 12:47 90 98 12/08/19 12:44 90 123/83 12/08/19 12:42 89 99 12/08/19 12:37 91 H 99 12/08/19 12:32 90 98 12/08/19 12:31 86 124/84 12/08/19 12:27 91 H 98 12/08/19 12:22 97 H 98 12/08/19 12:17 93 H 98 12/08/19 12:14 99 H 114/72 12/08/19 12:12 84 99 12/08/19 12:07 92 H 99 12/08/19 12:03 98.9 F 94 H 12 117/75 98 12/08/19 11:57 94 H 117/75 Intake and Output 12/08/19 12/09/19 12/09/19 23:59 07:59 15:59 Intake Total 1650 320 Output Total 375 900 Balance 1275 -580 Intake: IV 1650 Oral 320 Output: Urine 375 900 Void 900 Other: Total, Intake Amount 320 Total, Output Amount 900 # Voids Void 1 Estimated Blood Loss 750 - Exam Cardiovascular: Present: Regular rate, No murmurs Lungs: Present: Clear to auscultation Abdomen: Present: normal appearance, soft, normal bowel sounds. Absent: distention, tenderness, guarding, rigidity Uterus: Present: normal, firm, fundal height below umbilicus. Absent: bogginess, tenderness Extremities: Present: normal, edema (mild pedal edema bilaterally). Absent: tenderness Incision: Present: normal, dry, dressed - Labs Labs: Abnormal lab results 12/08/19 12/08/19 12/08/19 Range/Units 13:09 13:09 13:43 MCV 77 L (79-97) fl MCH 25 L (28-32) pg RDW 17.3 H (13.2-15.2) % Lactate Dehydrogenase 213 H (91-180) units/L U Epithel Cells (Auto) 14.0 H (0-13.0) /HPF
[2019-12-09] MEDS ORDERED: AYR SALINE NASAL GEL 14.1 GM NS PRN (15:09)
[2019-12-09] MEDS: guaiFENesin 100 MG/5 ML ORAL LIQD PO PRN ×2 (16:03→20:53)
[2019-12-09] MEDS ORDERED: diphenhydrAMINE 25 MG CAP PO PRN (20:42)
[2019-12-10] MEDS: IBUPROFEN 800 MG TAB PO PRN ×3 (00:11→13:48)
[2019-12-10] MEDS: guaiFENesin 100 MG/5 ML ORAL LIQD PO PRN ×4 (00:12→20:29)
[2019-12-10] MEDS: oxyCODONE /ACETAMINOPHEN 5-325MG TAB PO PRN ×3 (08:25→22:19)
[2019-12-10] MEDS: FERROUS SULFATE 325 MG TAB PO SCH (09:50)
--- NOTE | 2019-12-10 12:44 | Progress Note ---
Assessment and Plan A: day 2 S/P repeat section with BTL. Anemia. Coronavirus positivity. P: Continue iron supplementation. Continue to monitor for signs and symptoms of coronavirus. Recheck blood pressure and call results to provider (communication order put in). Subjective - Subjective Date of service: 12/10/19 Principal diagnosis: /postop day 2 S/P repeat LTCS with BTL Patient reports: appetite normal, voiding normally, flatus, ambulating normally, no dizzy ambulation, no nauseated [place]: doing well, bottle feeding Objective - Vital Signs Latest vital signs: Vital Signs Temp Pulse Resp BP BP Pulse Ox 12/10/19 08:43 99.1 F 93 H 20 130/97 12/10/19 08:25 20 12/10/19 05:31 16 12/10/19 02:49 97.9 F 79 18 133/81 98 12/10/19 00:11 16 12/09/19 17:36 98.8 F 88 20 143/90 Intake and Output 12/09/19 12/10/19 12/10/19 23:59 07:59 15:59 Intake Total 360 240 Output Total 900 Balance -540 240 Intake: Oral 360 240 Output: Urine 900 Void 900 Other: Total, Intake Amount 360 240 Total, Output Amount 900 - Exam Cardiovascular: Present: Regular rate, No murmurs Lungs: Present: Clear to auscultation Abdomen: Present: normal appearance, soft, normal bowel sounds. Absent: distention, tenderness, guarding, rigidity Uterus: Present: normal, firm, fundal height below umbilicus. Absent: bogginess, tenderness Extremities: Present: normal. Absent: tenderness Incision: Present: normal, dry, intact - Labs Labs: Abnormal lab results 12/09/19 Range/Units 10:21 Coronavirus (PCR) Positive A (Negative)
[2019-12-11] MEDS: oxyCODONE /ACETAMINOPHEN 5-325MG TAB PO PRN (03:52)
[2019-12-11] MEDS: guaiFENesin 100 MG/5 ML ORAL LIQD PO PRN (04:00)
--- NOTE | 2019-12-11 09:57 | XRay Report ---
CHEST 1 VIEW INDICATION: cough. COMPARISON: None. FINDINGS: Support devices: None. Heart: Normal. Lungs/Pleura: No acute pulmonary or pleural findings. IMPRESSION: 1. No acute findings. Signer Name: Ang Ortega MD Signed: 12/11/2019 9:53 AM Workstation Name: [id number]
--- NOTE | 2019-12-11 10:41 | Consultation ---
History of Present Illness - Reason for Consult Consult date: 12/11/19 COVID/ Requesting physician: DELFINA ARMENTA - History of Present Illness 29 years old female status post tubal ligation on 12/08/2019 for 39 weeks with contractions and elevated blood pressure. Patient denies any cough, shortness of breath, fever, chills, nausea, vomiting. Patient tested positive for SARS Covid 2 PCR. Urinalysis shows large leukocyte but no WBCs or nitrates. Lower extremity ultrasound shows no DVT. Chest x-ray was unremarkable. Review of Systems: reviewed ED and H&P notes. Limited due to PPE conservation strategy Past History Social history: no significant social history Medications and Allergies Allergies Allergy/AdvReac Type Severity Reaction Status Date / Time No Known Allergies Allergy Verified 04/14/19 11:26 Home Medications Medication Instructions Recorded Confirmed Last Taken Type Ibuprofen [Motrin 800 MG tab] 800 mg PO Q8HR PRN #30 tablet 12/08/19 Unknown Rx oxyCODONE /ACETAMINOPHEN [Percocet 1 tab PO Q6HR PRN #30 tablet 12/08/19 Unknown Rx 5/325 mg] Active Meds: Active Medications Diphenhydramine HCl (Benadryl) 25 mg PO Q6H PRN PRN Reason: Itching Last Admin: 12/09/19 20:53 Dose: 25 mg Documented by: Ferrous Sulfate (Feosol) 325 mg PO QDAY TRISH Last Admin: 12/10/19 09:50 Dose: 325 mg Documented by: Guaifenesin (Robitussin) 200 mg PO Q4H PRN PRN Reason: Cough Last Admin: 12/11/19 04:00 Dose: 200 mg Documented by: Hydrocortisone Acetate (Anucort-Hc) 25 mg NJ BID PRN PRN Reason: Hemorrhoids Lactated Ringer's (Lactated Ringers) 1,000 mls @ 125 mls/hr IV DIRECT TRISH Last Admin: 12/09/19 00:49 Dose: 125 mls/hr Documented by: Oxytocin/Sodium Chloride (Pitocin/Ns 30 Unit/500ml) 30 units in 500 mls @ 40 mls/hr IV TITR TRISH; Protocol Ibuprofen (Ibuprofen) 800 mg PO Q6H PRN PRN Reason: Pain, Mild (1-3) Last Admin: 12/10/19 13:48 Dose: 800 mg Documented by: Labetalol HCl (Labetalol) 100 mg PO BID TRISH Last Admin: 12/11/19 09:15 Dose: 100 mg Documented by: Magnesium Hydroxide (Milk Of Magnesia) 30 ml PO QHS PRN PRN Reason: Constip Unrelieved By Senna Last Admin: 12/09/19 17:59 Dose: 30 ml Documented by: Morphine Sulfate (Morphine) 4 mg IV Q4H PRN PRN Reason: Pain , Severe (7-10) Last Admin: 12/08/19 20:42 Dose: 4 mg Documented by: Multi-Ingredient Ointment (Lansinoh) 1 applic TP PRN PRN PRN Reason: dryness/cracking Naloxone HCl (Naloxone) 0.1 mg IV Q2MIN PRN PRN Reason: Res Rate </= 8 or 02 SAT < 92% Ondansetron HCl (Zofran) 4 mg IV Q8H PRN PRN Reason: Nausea And Vomiting Oxycodone/Acetaminophen (Percocet 5/325) 2 tab PO Q6H PRN PRN Reason: Pain, Moderate (4-6) Last Admin: 12/11/19 03:52 Dose: 2 tab Documented by: Promethazine HCl (Phenergan) 25 mg NJ Q6H PRN PRN Reason: N/V IF NPO AND NO IV ACCESS Senna (Senokot) 17.2 mg PO QHS PRN PRN Reason: Constipation Simethicone (Mylicon) 80 mg PO Q6H PRN PRN Reason: Gas pain Last Admin: 12/09/19 10:26 Dose: 80 mg Documented by: Sodium Chloride (Sodium Chloride Flush Syringe 10 Ml) 10 ml IV PRN [facility] Sodium Chloride ([place] Saline) 1 applic NS PRN PRN PRN Reason: Dry Nasal Passages Last Admin: 12/09/19 17:59 Dose: 1 applic Documented by: Witch Juliann/Glycerin (Tucks Pad) 1 each TP PRN PRN PRN Reason: Hemorrhoids/cleansing/soothing Physical Examination - Physical Exam Narrative exam: Physical Exam: reviewed ED and hospitalist notes, limited due to conservation of PPE and decrease risk of transmission. General appearance: limited due to conservation of PPE Eyes: limited due to conservation of PPE HENT: Atraumatic; limited due to conservation of PPE Lungs: limited due to conservation of PPE CV: limited due to conservation of PPE Abdomen: limited due to conservation of PPE Extremities: limited due to conservation of PPE Skin: limited due to conservation of PPE Psych: limited due to conservation of PPE Neuro: limited due to conservation of PPE - Constitutional Vitals: Vital Signs Temp Pulse Resp BP Pulse Ox 98.2 F 76 18 139/80 97 12/11/19 08:35 12/11/19 08:35 12/11/19 08:35 12/11/19 08:35 12/11/19 00:46 Temperature -Last 24 Hours Temperature 98.2 F Temperature 98.6 F Temperature 98.0 F Temperature 98.0 F Temperature 98.9 F Results - Labs CBC & Chem 7: 12/09/19 05:54 12/08/19 13:09 Assessment and Plan Cultures: Blood culture none SARS CoV2 PCR positive Assessment: 29 years old female status post and tubal ligation on 12/08/2019 for 39 weeks with contractions and elevated blood pressure, found to have positive SARS-CoV-2 PCR: #SARS-CoV-2 PCR positive/asymptomatic COVID-19 infection: Patient without any fever or hypoxia.. Lower extremity ultrasound shows no DVT. Chest x-ray was unremarkable. # 39 weeks status post tubal ligation on 12/08/2019 Recommendations: -Patient is not a candidate for dexamethasone due to lack of hypoxia -Patient is not a candidate for remdesivir due to lack of hypoxia -Monitor O2 sats at rest and on exertion -6 minutes walking test, if normal okay to discharge home, if she develops O2 sats <94% please call infectious diseases All laboratory, cultures and imaging were reviewed. Will follow Lynn Pisano MD Infectious Diseases Matlab Developer [facility] M [phone] O [phone]
--- NOTE | 2019-12-11 11:21 | Progress Note ---
Assessment and Plan A: POD #3 Coronavirus Elevated Blood Pressures P: Follow Routine Orders Cleared for D/C home by ID Patient request d/c home today Continue Labetolol 100mg PO BID D/C Home today RTO in one week Subjective - Subjective Date of service: 12/11/19 Principal diagnosis: /postop day 2 S/P repeat LTCS with BTL Patient reports: appetite normal, voiding normally, pain well controlled, flatus, ambulating normally : doing well, bottle feeding Objective - Vital Signs Latest vital signs: Vital Signs Temp Pulse Resp BP BP BP Pulse Ox 12/11/19 08:35 98.2 F 76 18 139/80 12/11/19 03:52 18 12/11/19 00:46 81 130/79 97 12/11/19 00:45 98.6 F 98 H 12/10/19 22:20 91 H 145/94 12/10/19 22:19 98.0 F 91 H 18 145/94 99 12/10/19 16:25 98.0 F 79 18 133/81 98 12/10/19 14:44 85 134/93 12/10/19 13:14 98.9 F 83 18 128/98 Intake and Output 12/10/19 12/11/19 12/11/19 22:59 06:59 14:59 Intake Total 440 200 320 Balance 440 200 320 Intake: Oral 440 200 320 Other: Total, Intake Amount 200 200 320 # Voids Void 1 1 1 - Exam Breasts: Present: normal Cardiovascular: Present: Regular rate Lungs: Present: Clear to auscultation, Normal air movement Abdomen: Present: normal appearance, soft, normal bowel sounds Uterus: Present: normal, firm, fundal height below umbilicus Extremities: Present: normal Incision: Present: normal, dry, intact
--- NOTE | 2019-12-11 11:24 | Discharge Summary ---
Providers - Providers Date of Admission: 12/08/19 14:45 Date of discharge: 12/11/19 Attending physician: JONAS DOE JR, MD 12/10/19 12:17 Consult to Case Management [CONS] Routine Services Needed at Discharge: It Support Engineer Notified:: AMITA Phone number called:: [phone] Was contact made?: Yes If yes, spoke with:: Mr. Gregory Time called:: 12:44 Additional Physician Instructions: Psychosocial stressors; pt. tested pos itive for coronavirus. 12/11/19 06:38 Consult to Physician [CONS] Routine Comment: Consulting Provider: THAIS MORALES Physician Instructions: Reason For Exam: cough, coronavirus positive Primary care physician: JONAS DOE JR, MD Hospitalization Reason for admission: section Delivery: Procedure: bilateral tubal ligation, repeat low transverse Episiotomy: none Laceration: none Incision: normal, dry, intact Other procedures: none complications: none Discharge diagnosis: IUP at term delivered [place] baby: male Condition at discharge: Good Disposition: DC-01 TO HOME OR SELFCARE Plan - Discharge Medications Prescriptions: Ibuprofen [Motrin 800 MG tab] 800 mg PO Q8HR PRN #30 tablet PRN Reason: Pain, Mild (1-3) oxyCODONE /ACETAMINOPHEN [Percocet 5/325 mg] 1 tab PO Q6HR PRN #30 tablet PRN Reason: Pain, Moderate (4-6) - Provider Discharge Summary Activity: routine, no sex for 6 weeks, no heavy lifting 4 weeks, no strenuous exercise Diet: routine Instructions: routine Additional instructions: [] Smoking cessation referral if applicable(refer to patient education folder for contact #) [] Refer to [facility] Booklet Call your doctor immediately for: * Fever > 100.5 * Heavy vaginal bleeding ( >1 pad per hour) * Severe persistent headache * Shortness of breath * Reddened, hot, painful area to leg or breast * Drainage or odor from incision. * Keep incision clean and dry at all times and follow doctor's instructions regarding bathing/showering - Follow up plan Follow up: JONAS DOE JR, MD [Primary Care Provider] - 7 Days Forms: [facility] Discharge Summary
[2019-12-11] MEDS: IBUPROFEN 800 MG TAB PO PRN (11:33)
[2019-12-11] MEDS: FERROUS SULFATE 325 MG TAB PO SCH (11:33)
[2019-12-11 13:46] VITALS: BP 138/90
== END 2019-12-11 14:21 | disposition home or self-care (01) | DRG 765 ==
LOC: APU 11:28 → TRG 11:28 → APU 14:45 → OB 21:26
PROVIDERS: ADMIT Obstetrics & Gynecology; ATTEND Obstetrics & Gynecology
PROC: 10D00Z1 Extraction of Products of Conception, Low, Open Approach (ICD-10-PCS; principal; 2019-12-08)
PROC: 0UB70ZZ Excision of Bilateral Fallopian Tubes, Open Approach (ICD-10-PCS; 2019-12-08)
DX: O13.4 Gestational [pregnancy-induced] hypertension without significant proteinuria, complicating childbirth (principal); U07.1 COVID-19; O98.52 Other viral diseases complicating childbirth; O99.52 Diseases of the respiratory system complicating childbirth; O99.12 Other diseases of the blood and blood-forming organs and certain disorders involving the immune mechanism complicating childbirth; O34.211 Maternal care for low transverse scar from previous cesarean delivery; Z37.0 Single live birth; Z3A.39 39 weeks gestation of pregnancy; O90.81 Anemia of the puerperium; Z30.2 Encounter for sterilization
CPT/HCPCS: 36415; 71045; 81001; 82565; 83615; 84450; 84460; 84550; 85014; 85018; 85027; 86850; 86900; 86901; 88302; 88305; 93970; G0378; J0690; J1100; J1170; J1885; J2270; J2370; J2405; J2765; J3490; J7120; U0003

== ENCOUNTER 2020-09-07 05:05 | Emergency (ER) | payer OTHER ==
[2020-09-07 05:46] VITALS: BP 119/83
--- NOTE | 2020-09-07 07:23 | Emergency Department Report ---
ED ENT HPI - General Chief complaint: Dental/Oral Stated complaint: TOOTHACHE Time Seen by Provider: 09/07/20 07:13 Source: patient Mode of arrival: Ambulatory Limitations: No Limitations - History of Present Illness Initial comments: 30-year-old female presents to the emergency room complaining of tooth pain and left jaw pain x1 day. She denies any trauma . Denies difficulty swallowing denies shortness of breath no difficulty turning her neck no jaw swelling. States she could not get into see a dentist. She denies any past medical history. She appears to be in no acute distress MD complaint: tooth pain -: days(s) (1) Location: tooth # (# 20,#19) Severity: moderate, severe Severity scale (0 -10): 10 Quality: aching, sharp, constant Consistency: constant Improves with: none Worsens with: eating Context- Dental: poor dental care Associated Symptoms: toothache. denies: fever, cough, pain with swallowing, sore throat, tinnitus, hearing loss, discharge from ear, rhinorrhea - Related Data Previous Rx's Medication Instructions Recorded Last Taken Type Ibuprofen [Motrin 800 MG tab] 800 mg PO Q8HR PRN #30 tablet 12/08/19 Unknown Rx oxyCODONE /ACETAMINOPHEN [Percocet 1 tab PO Q6HR PRN #30 tablet 12/08/19 Unknown Rx 5/325 mg] Acetaminophen/Codeine [Tylenol 1 tab PO Q4HR PRN #15 tablet 09/07/20 Unknown Rx /Codeine # 3 tab] Amoxicillin [Trimox CAP] 500 mg PO Q12H 10 Days #20 capsule 09/07/20 Unknown Rx Ibuprofen [Motrin] 800 mg PO Q8HR PRN #21 tablet 09/07/20 Unknown Rx Allergies Allergy/AdvReac Type Severity Reaction Status Date / Time No Known Allergies Allergy Verified 04/14/19 11:26 ED Dental HPI - General Chief complaint: Dental/Oral Stated complaint: TOOTHACHE Time Seen by Provider: 09/07/20 07:13 Source: patient Mode of arrival: Ambulatory Limitations: No Limitations - Related Data Previous Rx's Medication Instructions Recorded Last Taken Type Ibuprofen [Motrin 800 MG tab] 800 mg PO Q8HR PRN #30 tablet 12/08/19 Unknown Rx oxyCODONE /ACETAMINOPHEN [Percocet 1 tab PO Q6HR PRN #30 tablet 12/08/19 Unknown Rx 5/325 mg] Acetaminophen/Codeine [Tylenol 1 tab PO Q4HR PRN #15 tablet 09/07/20 Unknown Rx /Codeine # 3 tab] Amoxicillin [Trimox CAP] 500 mg PO Q12H 10 Days #20 capsule 09/07/20 Unknown Rx Ibuprofen [Motrin] 800 mg PO Q8HR PRN #21 tablet 09/07/20 Unknown Rx Allergies Allergy/AdvReac Type Severity Reaction Status Date / Time No Known Allergies Allergy Verified 04/14/19 11:26 ED Review of Systems ROS: Stated complaint: TOOTHACHE Other details as noted in HPI Comment: All other systems reviewed and negative Constitutional: denies: chills, fever, other ENT: dental pain. denies: ear pain, throat pain, hearing loss, congestion Respiratory: no symptoms reported Cardiovascular: denies: chest pain, dyspnea on exertion, edema, syncope, paroxysmal nocturnal dyspnea Endocrine: no symptoms reported. denies: excessive sweating, flushing, intolera nce to cold, intolerance to heat, increased hunger, increased thirst, increased urine, unexplained weight gain, unexplained weight loss Gastrointestinal: denies: abdominal pain, nausea, vomiting Skin: denies: rash, lesions, change in color Neurological: denies: headache, numbness, paresthesias Psychiatric: denies: anxiety, auditory hallucinations ED Past Medical Hx - Past Medical History Previous Medical History?: Yes Hx Hypertension: Yes Hx Congestive Heart Failure: No Hx Diabetes: No Hx Deep Vein Thrombosis: No Hx Renal Disease: No Hx Sickle Cell Disease: No Hx Seizures: No Hx Asthma: No Hx COPD: No Hx HIV: No Additional medical history: vaginal delivery x 2; std - Surgical History Past Surgical History?: Yes Additional Surgical History: x2 - Social History Smoking Status: Never Smoker Substance Use Type: None - Medications Home Medications: Home Medications Medication Instructions Recorded Confirmed Last Taken Type Ibuprofen [Motrin 800 MG tab] 800 mg PO Q8HR PRN #30 tablet 12/08/19 Unknown Rx oxyCODONE /ACETAMINOPHEN [Percocet 1 tab PO Q6HR PRN #30 tablet 12/08/19 Unknown Rx 5/325 mg] Acetaminophen/Codeine [Tylenol 1 tab PO Q4HR PRN #15 tablet 09/07/20 Unknown Rx /Codeine # 3 tab] Amoxicillin [Trimox CAP] 500 mg PO Q12H 10 Days #20 capsule 09/07/20 Unknown Rx Ibuprofen [Motrin] 800 mg PO Q8HR PRN #21 tablet 09/07/20 Unknown Rx ED Physical Exam - General Limitations: No Limitations General appearance: alert, in no apparent distress - Head Head exam: Present: atraumatic, normal inspection - Eye Eye exam: Present: normal appearance. Absent: conjunctival injection, periorbital tenderness - ENT ENT exam: Present: normal exam, mucous membranes moist, TM's normal bilaterally, normal external ear exam, other (multiple dental caries noted, gum erythema around tooth # 19 & 20, no facial swelling, no trismus) - Neck Neck exam: Present: normal inspection, full ROM. Absent: tenderness, lymphadenopathy - Respiratory Respiratory exam: Present: normal lung sounds bilaterally. Absent: respiratory distress, wheezes, rales - Cardiovascular Cardiovascular Exam: Present: regular rate, normal heart sounds - Extremities Exam Extremities exam: Present: normal inspection - Neurological Exam Neurological exam: Present: alert, oriented X3 - Psychiatric Psychiatric exam: Present: normal affect - Skin Skin exam: Present: warm, dry, intact, normal color ED Course Vital Signs 09/07/20 05:40 Temperature 98.6 F Pulse Rate 81 Respiratory 18 Rate Blood Pressure 119/83 O2 Sat by Pulse 97 Oximetry ED Medical Decision Making - Medical Decision Making 30-year-old female presents with tooth ache x1 day. She denies any past medical history she denies any fever or difficulty swallowing no difficulty opening her mouth. On examination she does have widespread dental caries. Plan is to treat her dental infection with oral antibiotics also pain management and follow-up with dentist as soon as possible - Differential Diagnosis dental infection, tooth ache Critical Care Time: No Critical care attestation.: If time is entered above; I have spent that time in minutes in the direct care of this critically ill patient, excluding procedure time. ED Disposition Clinical Impression: Toothache Disposition: DC- TO HOME OR SELFCARE Is pt being admited?: No Does the pt Need Aspirin: No Condition: Stable Additional Instructions: Take medication as prescribed follow-up with the dentist as soon as possible. Warm salt water gargles at least 3-4 times a day. It is very important that you follow-up with a dentist. Return to the emergency room if you develop fever increasing facial swelling unable to open your mouth or unable to swallow. Prescriptions: Ibuprofen [Motrin] 800 mg PO Q8HR PRN #21 tablet PRN Reason: Pain, Moderate (4-6) Amoxicillin [Trimox CAP] 500 mg PO Q12H 10 Days #20 capsule Acetaminophen/Codeine [Tylenol /Codeine # 3 tab] 1 tab PO Q4HR PRN #15 tablet PRN Reason: Pain Referrals: PRIMARY CARE,MD [Primary Care Provider] - 3-5 Days [facility] [Outside] - 3-5 Days [facility] [Outside] - 3-5 Days Time of Disposition: 07:33
[2020-09-07] MEDS ORDERED: IBUPROFEN 800 MG TAB PO ONE (07:26)
== END 2020-09-07 08:31 | disposition home or self-care (01) ==
LOC: ED 05:05
DX: K08.89 Other specified disorders of teeth and supporting structures (principal); I10 Essential (primary) hypertension; Z79.899 Other long term (current) drug therapy; Z98.890 Other specified postprocedural states
CPT/HCPCS: 99282

== ENCOUNTER 2021-08-14 08:35 | Emergency (ER) | payer OTHER ==
[2021-08-14 09:12] LABS: Bilirubin,Urine NEG (Negative); Blood,Urine NEG (Negative); Color,Urine Yellow (Yellow); Protein,Urine <15 mg/dL mg/dL (Negative)
[2021-08-14 09:35] LABS: HCG Qualitative,Urine Negative (Negative)
[2021-08-14 09:46] LABS: Bacteria,Urine 1+ /HPF (Negative); Mucus,Urine FEW /HPF
[2021-08-14] MEDS ORDERED: KETOROLAC 30 MG/1 ML INJ IM ONE (12:48)
--- NOTE | 2021-08-14 12:52 | Emergency Department Report ---
ED Female HPI - General Chief complaint: Urogenital-Female Stated complaint: VAGINAL DISCHARGE/RT HIP PAIN Source: patient Mode of arrival: Ambulatory Limitations: No Limitations - History of Present Illness Initial comments: 30-year-old female presents to the ED complaining of chronic right hip pain since 2019. 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 Is pointing toward her right buttocks when she is pointing where the pain is at. She states pain is a current 10 out of 10. Denies any radiation. patient states that she takes Tylenol [id number] for pain without any relief. Denies any dysuria, loss of bowel or bladder or back pain at present time. States that she was seen by [facility] [employer] [facility] as she thought maybe it was due to her having a baby in 2019. Patient present with a foul odor. She states she has recurrent bacterial vaginosis and would like to have be treated for that. Patient denies any abdominal pain at present time. She is alert and oriented x3. no acute distress noted. no ill appearance noted - Related Data Previous Rx's Medication Instructions Recorded Last Taken Type Ibuprofen [Motrin 800 MG tab] 800 mg PO Q8HR PRN #30 tablet 12/08/19 Unknown Rx oxyCODONE /ACETAMINOPHEN [Percocet 1 tab PO Q6HR PRN #30 tablet 12/08/19 Unknown Rx 5/325 mg] Acetaminophen/Codeine [Tylenol 1 tab PO Q4HR PRN #15 tablet 09/07/20 Unknown Rx /Codeine # 3 tab] Amoxicillin [Trimox CAP] 500 mg PO Q12H 10 Days #20 capsule 09/07/20 Unknown Rx Ibuprofen [Motrin] 800 mg PO Q8HR PRN #21 tablet 09/07/20 Unknown Rx Naproxen [Naprosyn] 500 mg PO BID 15 Days #30 tablet 08/14/21 Unknown Rx metroNIDAZOLE [Flagyl] 500 mg PO Q12HR 7 Days #14 tab 08/14/21 Unknown Rx predniSONE [Deltasone] 50 mg PO QDAY 5 Days #5 tab 08/14/21 Unknown Rx Allergies Allergy/AdvReac Type Severity Reaction Status Date / Time No Known Allergies Allergy Verified 04/14/19 11:26 ED Review of Systems ROS: Stated complaint: VAGINAL DISCHARGE/RT HIP PAIN Other details as noted in HPI Constitutional: denies: chills, fever Eyes: denies: eye pain, eye discharge, vision change ENT: denies: ear pain, throat pain Respiratory: denies: cough, shortness of breath, wheezing Cardiovascular: denies: chest pain, palpitations Endocrine: no symptoms reported Gastrointestinal: denies: abdominal pain, nausea, diarrhea Genitourinary: denies: urgency, dysuria, discharge Musculoskeletal: back pain. denies: joint swelling, arthralgia Skin: denies: rash, lesions Neurological: denies: headache, weakness, paresthesias Psychiatric: denies: anxiety, depression Hematological/Lymphatic: denies: easy bleeding, easy bruising ED Past Medical Hx - Past Medical History Hx Hypertension: Yes Hx Congestive Heart Failure: No Hx Diabetes: No Hx Deep Vein Thrombosis: No Hx Renal Disease: No Hx Sickle Cell Disease: No Hx Seizures: No Hx Asthma: No Hx COPD: No Hx HIV: No Additional medical history: vaginal delivery x 2; std - Surgical History Additional Surgical History: x2 - Social History Smoking Status: Never Smoker Substance Use Type: None - Medications Home Medications: Home Medications Medication Instructions Recorded Confirmed Last Taken Type Ibuprofen [Motrin 800 MG tab] 800 mg PO Q8HR PRN #30 tablet 12/08/19 Unknown Rx oxyCODONE /ACETAMINOPHEN [Percocet 1 tab PO Q6HR PRN #30 tablet 12/08/19 Unknown Rx 5/325 mg] Acetaminophen/Codeine [Tylenol 1 tab PO Q4HR PRN #15 tablet 09/07/20 Unknown Rx /Codeine # 3 tab] Amoxicillin [Trimox CAP] 500 mg PO Q12H 10 Days #20 capsule 09/07/20 Unknown Rx Ibuprofen [Motrin] 800 mg PO Q8HR PRN #21 tablet 09/07/20 Unknown Rx Naproxen [Naprosyn] 500 mg PO BID 15 Days #30 tablet 08/14/21 Unknown Rx metroNIDAZOLE [Flagyl] 500 mg PO Q12HR 7 Days #14 tab 08/14/21 Unknown Rx predniSONE [Deltasone] 50 mg PO QDAY 5 Days #5 tab 08/14/21 Unknown Rx ED Physical Exam - General Limitations: No Limitations General appearance: alert, in no apparent distress - Head Head exam: Present: atraumatic, normocephalic - Eye Eye exam: Present: normal appearance - ENT ENT exam: Present: mucous membranes moist - Neck Neck exam: Present: normal inspection - Respiratory Respiratory exam: Present: normal lung sounds bilaterally. Absent: respiratory distress - Cardiovascular Cardiovascular Exam: Present: regular rate, normal rhythm. Absent: systolic murmur, diastolic murmur, rubs, gallop - GI/Abdominal GI/Abdominal exam: Present: soft, normal bowel sounds - Extremities Exam Extremities exam: Present: normal inspection - Back Exam Back exam: Present: normal inspection - Neurological Exam Neurological exam: Present: alert, oriented X3 - Psychiatric Psychiatric exam: Present: normal affect, normal mood - Skin Skin exam: Present: warm, dry, intact, normal color. Absent: rash ED Course Vital Signs 08/14/21 08:40 Temperature 98.7 F Pulse Rate 98 H Respiratory 16 Rate Blood Pressure 116/79 [Left] O2 Sat by Pulse 97 Oximetry ED Medical Decision Making - Medical Decision Making 30-year-old female presents to the ED complaining of chronic right hip pain since 2019. 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 Is pointing toward her right buttocks when she is pointing where the pain is at. She states pain is a current 10 out of 10. Denies any radiation. patient states that she takes Tylenol [id number] for pain without any relief. Denies any dysuria, loss of bowel or bladder or back pain at present time. States that she was seen by her [employer] as she thought maybe it was due to her having a baby in 2019. Patient present with a foul odor. She states she has recurrent bacterial vaginosis and would like to have be treated for that. Patient denies any abdominal pain at present time. She is alert and oriented x3. no acute distress noted. no ill appearance noted. Physical examination is unremarkable. Rechecked the patient is resting quietly ,comfortable and feeling better. I discussed the results of diagnostic study, my clinical impression and the plan for further treatment with the patient. Patient agrees with plan and discharge at this present time. All question addressed. I have given the patient instruction regarding a diagnosis ,expectation ,follow- up and return precaution. I explained to the patient that emergent condition may arise and to return to the ED for new worsen and any new persisting condition. I have explained the importance of following up with the primary care physician or referral physician listed below has instructed. The patient verbalized understanding of discharge instruction. Abnormal Lab Results 08/14/21 Unknown Urine Color Yellow Urine Turbidity Slightly-cloudy Urine pH 7.0 Ur Specific [place] 1.021 Urine Protein <15 mg/dl Urine Glucose (UA) Neg Urine Ketones Neg Urine Blood Neg Urine Nitrite Neg Urine Bilirubin Neg Urine Urobilinogen 2.0 Ur Leukocyte Esterase Sm Urine WBC (Auto) 5.0 Urine RBC (Auto) 4.0 U Epithel Cells (Auto) < 1.0 Urine Bacteria (Auto) 1+ Urine Mucus Few Urine HCG, Qual Negative Critical care attestation.: If time is entered above; I have spent that time in minutes in the direct care of this critically ill patient, excluding procedure time. ED Disposition Clinical Impression: Bacterial vaginosis Chronic hip pain Qualifiers: Laterality: right Qualified Code(s): M25.551 - Pain in right hip Sciatica without back pain Qualifiers: Laterality: right Qualified Code(s): M54.31 - Sciatica, right side Disposition: 01 HOME / SELF CARE / HOMELESS Is pt being admited?: No Does the pt Need Aspirin: No Condition: Stable Instructions: Sciatica, [id number], Bacterial Vaginosis, [id number], Bacterial Vaginosis (ED), Chronic Pain (ED) Additional Instructions: Take medication as prescribed Return the ED for any worsening symptom Prescriptions: predniSONE [Deltasone] 50 mg PO QDAY 5 Days #5 tab metroNIDAZOLE [Flagyl] 500 mg PO Q12HR 7 Days #14 tab Naproxen [Naprosyn] 500 mg PO BID 15 Days #30 tablet Referrals: [facility] [Provider Group] - 3-5 Days [facility] [Provider [facility]] - 3-5 Days Forms: STI Treatment and Prevention, Work/School Release Form(ED) Time of Disposition: 12:57
[2021-08-14 13:23] VITALS: BP 131/78
== END 2021-08-14 13:25 | disposition home or self-care (01) ==
LOC: ED 08:35
DX: N76.0 Acute vaginitis (principal); M25.551 Pain in right hip; M54.31 Sciatica, right side; I10 Essential (primary) hypertension
CPT/HCPCS: 81001; 81025; 96372; 99283; J1885